=== PATIENT | male | born 1940 | race Caucasian/White ===

== ENCOUNTER 2018-10-27 08:42 | Inpatient (IN) | payer OTHER ==
[~2018-10-27] VITALS: Ht 177.8 cm; Wt 68.9 kg
[~2018-10-27 08:42] MED LIST: ACETAMINOOPHEN-1 TAB PO; AMBIEN10 MG PO; CIPRO750 MG PO; Colace 100MG PO; NEURONTIN PO
[2018-10-27] MEDS ORDERED: METFORMIN HCL850 MG PO (10:11)
[2018-10-27] MEDS ORDERED: ZOCOR40 MG PO (10:12)
[2018-10-27] MEDS ORDERED: COZAAR50 MG PO (10:12)
[2018-10-27] MEDS ORDERED: PLAVIX75 MG PO (10:13)
[2018-10-27] MEDS ORDERED: GLUCOTROL XL5 MG PO (10:13)
[2018-11-03] MEDS ORDERED: GABAPENTIN800 MG PO (07:43)
[2018-11-03] MEDS ORDERED: DOCUSATE SODIU100 MG PO (07:43)
[2018-11-03] MEDS ORDERED: AMOX-CLAV 875-1 EACH PO (07:44)
[2018-11-03] MEDS ORDERED: PERCOCET 5-3251 EACH PO (07:45)
[2018-11-03] MEDS ORDERED: CLONAZEPAM0.5 MG PO (07:45)
== END 2018-11-03 14:42 | disposition home or self-care (01) | DRG 455 ==
LOC: O/R 11-02 10:00 → SURG 11-02 10:00 → O/R 11-02 11:30 → SURG 11-02 17:09
PROVIDERS: ADMIT Orthopaedic Surgery Orthopaedic Surgery of the Spine
PROC: 0SG1071 Fusion of 2 or more Lumbar Vertebral Joints with Autologous Tissue Substitute, Posterior Approach, Posterior Column, Open Approach (ICD-10-PCS; 2018-11-02)
PROC: 0SG10AJ Fusion of 2 or more Lumbar Vertebral Joints with Interbody Fusion Device, Posterior Approach, Anterior Column, Open Approach (ICD-10-PCS; 2018-11-02)
PROC: 0ST20ZZ Resection of Lumbar Vertebral Disc, Open Approach (ICD-10-PCS; 2018-11-02)
PROC: 07DS3ZZ Extraction of Vertebral Bone Marrow, Percutaneous Approach (ICD-10-PCS; 2018-11-02)
PROC: 4A12X4Z Monitoring of Cardiac Electrical Activity, External Approach (ICD-10-PCS; 2018-11-02)
PROC: 0SG10A0 Fusion of 2 or more Lumbar Vertebral Joints with Interbody Fusion Device, Anterior Approach, Anterior Column, Open Approach (ICD-10-PCS; principal; 2018-11-02 13:00)
DX: M47.26 Other spondylosis with radiculopathy, lumbar region (principal); M48.062 Spinal stenosis, lumbar region with neurogenic claudication; M51.16 Intervertebral disc disorders with radiculopathy, lumbar region; E11.9 Type 2 diabetes mellitus without complications; I10 Essential (primary) hypertension; I25.10 Atherosclerotic heart disease of native coronary artery without angina pectoris; Z95.1 Presence of aortocoronary bypass graft

== ENCOUNTER 2020-12-13 07:00 | Day surgery (SDC) | payer OTHER ==
[~2020-12-13] VITALS: Ht 175.3 cm; Wt 68.9 kg
[~2020-12-13 07:00] MED LIST changes: +AMOX-CLAV 875-1 EACH PO; +CLONAZEPAM0.5 MG PO; +COZAAR50 MG PO; +DOCUSATE SODIU100 MG PO; +GABAPENTIN800 MG PO; +GLUCOTROL XL5 MG PO; +METFORMIN HCL850 MG PO; +PERCOCET 5-3251 EACH PO; +PLAVIX75 MG PO; +ZOCOR40 MG PO
[2020-12-13] MEDS ORDERED: DIAZEPAM5 MG PO (08:00)
[2020-12-13] MEDS ORDERED: MEDROLPACK PO (08:00)
[2020-12-13] MEDS ORDERED: COLACE100 MG PO (08:00)
[2020-12-13] MEDS ORDERED: AMOX-CLAV 875-1 EACH PO (08:00)
[2020-12-13] MEDS ORDERED: ACETAMINOPHEN-1 EAC2 PO (08:00)
[2020-12-13] MEDS ORDERED: NEURONTIN800 MG PO (08:00)
== END 2020-12-14 12:00 | disposition home or self-care (01) ==
LOC: CIR.AMB 07:00 → O/R 12:36 → SURG 16:58 → CIR.AMB 12-14 12:00 → SURG 12-14 12:08
PROVIDERS: ATTEND Orthopaedic Surgery Orthopaedic Surgery of the Spine
DX: M43.17 Spondylolisthesis, lumbosacral region (principal); M54.17 Radiculopathy, lumbosacral region; Z20.822 Contact with and (suspected) exposure to COVID-19
CPT/HCPCS: 22633; 20938; 20939; 22614; 22840; 22853; C1776